=== PATIENT | female | born 1970 | race Caucasian/White ===

== ENCOUNTER 2017-11-15 05:41 | Observation (INO) | payer BC ==
[2017-11-10 14:45] VITALS: BMI 42.0
--- NOTE | 2017-11-10 15:19 | PAT Medication Instructions ---
Service Date Nov 10, 2017. Current Home Medication List Cholecalciferol (Vitamin D3), 1 TAB PO QAM Cyanocobalamin (Vitamin B-12), Unknown Dose PO QAM Magnesium Oxide (Magnesium), 1 CAP PO QAM Naproxen (Aleve), 220 MG PO UD [place]-3 Fatty Acids ([place] 3), 1 CAP PO QAM Venlafaxine Hcl (Effexor), 75 MG PO QAM Medication Instructions For Your Scheduled Surgery - Hold the following medications starting tomorrow: [place]-3 Fatty Acids ([place] 3), 1 CAP PO QAM - Hold the following medications per your surgeon's instructions: Naproxen (Aleve), 220 MG PO UD - Hold the following medications the morning of surgery: Cholecalciferol (Vitamin D3), 1 TAB PO QAM Cyanocobalamin (Vitamin B-12), Unknown Dose PO QAM Magnesium Oxide (Magnesium), 1 CAP PO QAM - Take the following medications the morning of surgery with a sip of water: Venlafaxine Hcl (Effexor), 75 MG PO QAM If you have any questions please call us at [phone] or [phone] or [phone]
[2017-11-10 16:30] LABS: BASO % 0.8 %; BASO ABS # 0.06 K/uL (0-0.2); EOS % 2.8 %; EOS ABS # 0.22 K/uL (0-0.5); HEMOGLOBIN 13.8 g/dL (12.0-16.0); IG# 0.01 K/uL (0.00-0.02); LYMPH % 37.3 %; LYMPH ABS # 2.92 K/uL (1.2-3.4); MEAN CELL VOLUME 91.5 fL (80-100); MEAN CORPUSCULAR HEMOGLOBIN 30.8 pg (25-34); MEAN CORPUSCULAR HGB CONC 33.7 g/dl (32-36); MEAN PLATELET VOLUME 10.4 fL (7.4-10.4); MONO % 6.3 %; MONO ABS # 0.49 K/uL (0.11-0.59); NEUT % 52.7 %; NEUT ABS # 4.12 K/uL (1.4-6.5); PLATELET COUNT 331 K/uL (130-400); RED CELL DISTRIBUTION WIDTH CV 13.3 % (11.5-14.5); RED CELL DISTRIBUTION WIDTH SD 44.4 fL (36.4-46.3); WHITE BLOOD COUNT 7.82 K/uL (4.8-10.8)
[2017-11-10 16:35] LABS: CALCIUM 9.4 mg/dl (8.5-10.1); CREATININE 0.87 mg/dl (0.60-1.20); POTASSIUM 4.1 mmol/L (3.5-5.1)
[2017-11-10 16:39] LABS: PTT PATIENT 27.5 SECONDS (21.0-31.0)
[2017-11-15] VITALS (8 sets, daily range): BP systolic 127–155; BP diastolic 76–92; PULSE 68–88; TEMP 36.5–36.9; O2SAT 93–97; Ht 154.9 cm; Wt 100.4 kg
[~2017-11-15] VITALS: Ht 154.9 cm; Wt 100.4 kg
[~2017-11-15 05:41] MED LIST: CHOL1000 PO; CYAN250T PO; EFF75 PO; MAGN1CAP4 PO; NAPR1TAB9 PO; OMEG12006 PO
[2017-11-15] MEDS ORDERED: CEFAZOLIN 2000MG IV PUSH 15 ML IV SCH (06:00)
[2017-11-15] MEDS ORDERED: LACTATED RINGER'S 1000ML 1,000 ML IV SCH (06:00)
[2017-11-15] MEDS ORDERED: LIDOCAINE/EPINEPHRINE 1% 20 ML VIAL ONE (06:48)
[2017-11-15] MEDS ORDERED: BUPIVACAINE 0.25% 30 ML VIAL ONE (06:48)
[2017-11-15] MEDS ORDERED: ACETAMINOPHEN 1000 MG/100 ML IV IV ONE (06:54)
[2017-11-15] MEDS ORDERED: FENTANYL CITRATE INJ 50 MCG/1 ML 2 ML VIAL IV PRN (07:00)
[2017-11-15] MEDS ORDERED: HYDROmorphone INJ 1 MG/ML SYR IV PRN (07:00)
[2017-11-15] MEDS ORDERED: ONDANSETRON INJ 2 MG/ML 2 ML VIAL IV PRN ×2 (07:00→11:45)
[2017-11-15] MEDS ORDERED: PROMETHAZINE HCL INJ 12.5 MG in SODIUM CHLORIDE 0.9% 50ML 50 ML IV PRN ×2 (07:00→11:45)
[2017-11-15] MEDS ORDERED: ATROPINE SULFATE 0.1 MG/ML 5ML SYR IV PRN (07:00)
[2017-11-15] MEDS ORDERED: EpHEDrine SULFATE INJ 50 MG/ML AMP IV PRN (07:00)
[2017-11-15] MEDS ORDERED: LIDOCAINE 2% 20 MG/ML 5ML SYR IV ONE (07:03)
[2017-11-15] MEDS ORDERED: PROPOFOL IV EMULSION 10 MG/ML 20 ML VIAL IV ONE (07:03)
[2017-11-15] MEDS ORDERED: ROCURONIUM BROMIDE 10 MG/ML 5 ML VIAL IV ONE (07:03)
[2017-11-15] MEDS ORDERED: FENTANYL CITRATE INJ 50 MCG/1 ML 2 ML VIAL ONE ×3 (07:04→10:34)
[2017-11-15] MEDS ORDERED: MIDAZOLAM HCL 1 MG/ML 2ML VIAL ONE (07:04)
--- NOTE | 2017-11-15 07:09 | History & Physical Bridge Note ---
H&P Re-Evaluation Bridge Note: I have examined the patient, reviewed the History & Physical and in the interval since the performance of the History & Physical I have noted the following changes of clinical significance: No changes noted
[2017-11-15] MEDS ORDERED: SUCCINYLCHOLINE CHLORIDE 20 MG/ML 10 ML VIAL IV ONE (08:02)
[2017-11-15] MEDS ORDERED: DEXAMETHASONE SOD INJ 4 MG/ML VIAL ONE (08:02)
[2017-11-15] MEDS ORDERED: ONDANSETRON INJ 2 MG/ML 2 ML VIAL ONE (08:02)
[2017-11-15] MEDS ORDERED: EpHEDrine SULFATE 50MG/5ML SYR ONE (08:03)
--- NOTE | 2017-11-15 10:38 | [facility] Post Operative Brief Note ---
Immediate Operative Summary Operative Date Nov 15, 2017. Pre-Operative Diagnosis Breast Hypertrophy Post-Operative Diagnosis Breast Hypertrophy Procedure(s) Performed Bilateral Breast Reduction Surgeon Dr. Carmencita Romo Hat Body Sorter Surgeon(s) Mehnaz Barry PA-C Estimated Blood Loss 25ML Findings Consistent with Post-Op Diagnosis Specimens Fresh Specimens: A.) Left Breast Tissue - 790 grams B.) Right Breast Tissue - 832 grams Drains DARRYL x2 Anesthesia Type General Complication(s) none
[2017-11-15] MEDS ORDERED: ACETAMINOPHEN 325 MG TAB PO PRN (11:45)
[2017-11-15] MEDS ORDERED: OXYCODONE/ACETAMINOPHEN 5-325 TAB PO PRN (11:45)
[2017-11-15] MEDS ORDERED: MoRPHine SULFATE 4 MG/ML 1 ML CARP\\VIAL IV PRN ×2 (11:45)
[2017-11-15] MEDS ORDERED: OXAZEPAM 10MG CAP PO PRN (11:45)
[2017-11-15] MEDS ORDERED: MoRPHine SULFATE 2 MG/ML CARP IV PRN (11:45)
[2017-11-15] MEDS ORDERED: DiphenhydrAMINE HCL 50 MG/ML VIAL IV PRN (11:45)
--- NOTE | 2017-11-15 12:11 | Anesthesiology Progress Note ---
Anesthesia Post Op Note Date & Time Nov 15, 2017 at 12:10 Vital Signs Pain Intensity: 0 Vital Signs Past 12 Hours Date Time Temp Pulse Resp B/P (MAP) Pulse Ox O2 Delivery O2 Flow Rate FiO2 11/15/17 12:01 76 16 158/72 98 11/15/17 12:01 74 16 11/15/17 11:56 78 13 11/15/17 11:56 78 13 145/93 97 11/15/17 11:51 78 13 160/85 97 11/15/17 11:51 80 13 11/15/17 11:50 82 18 11/15/17 11:50 82 18 97 11/15/17 11:46 157/85 11/15/17 11:45 76 14 11/15/17 11:45 75 14 95 11/15/17 11:43 151/89 11/15/17 11:43 36.7 11/15/17 11:40 74 16 11/15/17 11:40 74 16 97 11/15/17 11:39 74 15 97 11/15/17 11:39 74 15 11/15/17 11:36 144/84 11/15/17 11:34 75 16 99 11/15/17 11:34 76 16 11/15/17 11:31 152/109 11/15/17 11:29 76 30 99 11/15/17 11:29 77 30 11/15/17 11:26 160/96 11/15/17 11:24 86 18 11/15/17 11:24 83 18 99 11/15/17 11:21 133/83 11/15/17 11:19 36.6 85 18 155/86 98 Oxymask 10 11/15/17 11:19 155/86 11/15/17 06:00 36.8 70 18 150/76 (100) 97 Room Air Notes Mental Status: alert / awake / arousable, participated in evaluation Pt Amnestic to Procedure: Yes Nausea / Vomiting: adequately controlled Pain: adequately controlled Airway Patency, RR, SpO2: stable & adequate BP & HR: stable & adequate Hydration State: stable & adequate Anesthetic Complications: no major complications apparent
[2017-11-15] MEDS: LACTATED RINGER'S 1000ML 1,000 ML IV SCH (13:07)
[2017-11-15] MEDS: OXYCODONE/ACETAMINOPHEN 5-325 TAB PO PRN ×2 (13:28→16:09)
[2017-11-15] MEDS ORDERED: IV FLUIDS COMPLETED PRN (14:00)
[2017-11-15] MEDS ORDERED: EFFSR/75 PO (14:09)
[2017-11-15] MEDS ORDERED: NEOSTIGMINE METHYLSULFATE 5 MG/5 ML SYR ONE (14:15)
[2017-11-15] MEDS ORDERED: GLYCOPYRROLATE INJ 0.2 MG/ML VIAL ONE (14:15)
[2017-11-15] MEDS: CEFAZOLIN IV 2,000 MG in SYRINGE 0 ML IV SCH ×2 (14:37→22:35)
--- NOTE | 2017-11-15 20:10 | OPERATIVE REPORT ---
DATE OF OPERATION: 11/15/2017 PREOPERATIVE DIAGNOSIS: Bilateral symptomatic macromastia. POSTOPERATIVE DIAGNOSIS: Same. PROCEDURE: Bilateral reduction mammoplasty. SURGEON: Carmencita Romo MD.. SPORTS TEAM MARKETING INTERN: Mehnaz Barry PA-C. ANESTHESIA: General. COMPLICATIONS: None. INDICATION FOR THE PROCEDURE: The patient is a 47-year-old female who presented to my office with complaints of back, neck and shoulder pain related to macromastia. After discussion, she decided to undergo breast reduction surgery. BRIEF DESCRIPTION OF THE PROCEDURE: The risks, benefits and alternatives of the procedure were explained to the patient who agreed and signed consent. She was identified and marked in the preoperative holding area. She was brought to the operating room where she was positioned supine and placed under general anesthesia without incident. Surgical site was prepped and draped sterilely. A time-out procedure was performed. I began with the left side. Markings were reassessed and an 8 cm pedicle was marked. 1% lidocaine with epinephrine was used to anesthetize the planned incisions. A 38 mm cookie cutter was used to circumscribe the nipple-areolar complex. The previously marked 8 cm pedicle was incised using a 15 blade scalpel and deepithelized. I began with the medial dissection of the pedicle using electrocautery. Cautery was used to incise through dermis and breast parenchyma down into the chest wall, taking care not to undermine the pedicle during dissection. A similar procedure was undertaken on the lateral aspect of the pedicle again taking care not to undermine. Lastly, the pedicle was dissected out superiorly using electrocautery and this was carried down to the chest wall as well. I then began excision of the medial breast tissue followed by lateral aspect of the breast tissue and surrounding keyhole incision. A 15 blade scalpel was used to make the inframammary fold incision and electrocautery was used to deepen the incision through dermis and breast parenchyma. The dissection was then carried superiorly to the level of the superior incision. Superior incision was then incised using 15 blade scalpel and again dissected using electrocautery. This was undertaken laterally and then around the keyhole portion of the incision. Care was taken to leave some fat on the lateral pectoralis fascia in order to protect the T4 intercostal nerve. Hemostasis was achieved with electrocautery. Specimen was removed in its entirety and passed off for weighing. Additional resection underneath the flap was taken. This was taken until a total of 790 grams were removed from the left breast. The wound was irrigated with saline and hemostasis was achieved with electrocautery. 0.25% Marcaine plain was used to anesthetize the incisions as well as the pectoralis fascia. A 15 Azeri Noe drain was brought out through a separate stab incision. The nipple-areolar complex was brought into the keyhole using 2-0 Vicryl deep dermal suture. The wound was closed first in a lateral to mid breast direction using 2-0 Vicryl deep dermals and then medial to mid breast using 2-0 Vicryl deep dermals. Vertical limb was also approximated using 2-0 Vicryl deep dermals. The nipple-areolar complex was inset using 2-0 Vicryl deep dermals. Next, the superficial dermal layer was closed using 2-0 PDO running Quill suture along the inframammary fold and 3-0 PDS interrupted dermal sutures for the vertical limb and nipple-areolar complex. Lastly 3-0 Monocryl running subcuticular suture was placed. A similar procedure was undertaken on the right side with maximal excision weight of 832 grams. The breasts were very symmetric following this portion of the procedure. Following closure, Dermabond Prineo was applied along the inframammary fold and vertical limb incisions and Dermabond was placed around the nipple-areolar complex. Dry dressings and a surgical bra were placed. The patient was awakened and transferred to recovery room in satisfactory condition. Mehnaz Barry PA-C was present and scrubbed throughout the entire procedure and was instrumental in providing retraction during dissection of the pedicle and assisting in simultaneous wound closure. I attest to the content of the Intraoperative Record and any orders documented therein. Any exception s are noted below.
[2017-11-16] MEDS: LACTATED RINGER'S 1000ML 1,000 ML IV SCH (01:57)
[2017-11-16 03:55] VITALS: BP 128/83; PULSE 69; TEMP 36.8; O2SAT 98
[2017-11-16 07:18] VITALS: BP 132/84; PULSE 60; TEMP 37.2; O2SAT 99
--- NOTE | 2017-11-16 08:05 | Surgery Progress Note ---
Surgery Progress Note Date of Service Nov 16, 2017. Subjective Post OP Day: 1 + feeling well, + ambulating, + pain controlled, No complaints Objective Vital Signs: Date Time Temp Pulse Resp B/P (MAP) Pulse Ox O2 Delivery O2 Flow Rate FiO2 11/16/17 07:18 37.2 60 16 132/84 (100) 99 Room Air 11/16/17 03:55 36.8 69 14 128/83 (98) 98 Room Air 11/15/17 23:40 Room Air 11/15/17 22:29 36.8 73 18 134/83 (100) 97 Room Air 11/15/17 19:27 36.9 68 19 127/87 (100) 96 Room Air 11/15/17 16:15 97 Room Air 11/15/17 15:19 36.8 88 19 149/92 (111) 97 Nasal Cannula 2.0 11/15/17 13:20 86 16 153/87 (109) 97 2.0 11/15/17 12:50 36.5 83 16 129/79 (96) 93 2.0 11/15/17 12:20 94 Nasal Cannula 2.0 11/15/17 12:20 94 Nasal Cannula 2.0 11/15/17 12:20 36.5 83 16 155/88 (110) 94 Nasal Cannula 2.0 11/15/17 12:10 36.7 11/15/17 12:07 75 14 97 11/15/17 12:07 74 14 11/15/17 12:02 78 15 98 11/15/17 12:02 75 15 11/15/17 12:01 76 16 158/72 98 11/15/17 12:01 74 16 11/15/17 11:56 78 13 11/15/17 11:56 78 13 145/93 97 11/15/17 11:51 78 13 160/85 97 18 11:51 80 13 18 11:50 82 18 11/15/17 11:50 82 18 97 11/15/17 11:46 157/85 18 11:45 76 14 18 11:45 75 14 95 11/15/17 11:43 151/89 11/15/17 11:43 36.7 11/15/17 11:40 74 16 2/19/18 11:40 74 16 97 11/15/17 11:39 74 15 97 11/15/17 11:39 74 15 11/15/17 11:36 144/84 11/15/17 11:34 75 16 99 11/15/17 11:34 76 16 11/15/17 11:31 152/109 11/15/17 11:29 76 30 99 11/15/17 11:29 77 30 11/15/17 11:26 160/96 11/15/17 11:24 86 18 11/15/17 11:24 83 18 99 11/15/17 11:21 133/83 11/15/17 11:19 36.6 85 18 155/86 98 Oxymask 10 11/15/17 11:19 155/86 Physical Exam: Noe drainage (serous and bloody) General Appearance: WD/WN, no apparent distress Incision(s): clean, dry, intact, no erythema, findings (nipples warm and with sensation bilat) Assessment & Plan s/p bilateral breast reduction POD#1 drains removed d/c instructions reviewed. D/c home today and f/u in office tomorrow
--- NOTE | 2017-11-16 08:07 | Discharge Instructions ---
Discharge Instructions Date of Service Nov 16, 2017. Admission Reason for Admission: Breast Hypertrophy Discharge Discharge Diagnosis / Problem: breast hypertrophy Discharge Goals Goal(s): Decrease discomfort, Improve function Activity Recommendations Activity Limitations: as noted below ACTIVITY RECOMMENDATIONS: __Normal activities _x_No bending, lifting or straining __No driving __Driving allowed when you are off pain medications _x_Walking permitted __You should have help at home for ___ days DRESSINGS: __No dressings required _x_Keep dressings dry/in place until first office visit __Remove dressings ___ and leave dressings off __Apply ice ___ days __Remove dressings and reapply garment __Apply antibiotic ointment (Bacitracin, Neosporin, etc) to wounds 3-4 times/ day for 10 days BATHING: _x_Keep dressings dry _x_Sponge bathing permitted __Showering permitted _x_No swimming, hot tubs or soaking in a tub MEDICATIONS: Resume previous medications unless instructed otherwise by your surgeon. _x_Do not use aspirin, Motrin, Advil or Ibuprofen as these may promote bleeding. Please use Tylenol. _x_Prescription(s) provided: pain medication provided at your last office visit OTHER INSTRUCTIONS: __Record drain output 2-3 times per day SPECIAL CARE INSTRUCTIONS: * It is normal to have a mild fever after surgery. If your temperature is higher than 101.5 degrees F, please call the office at [phone]. * Constipation is a typical side effect of pain medication. An over-the- counter stool softener will help relieve this. * Leaking around surgical drains may occur and should not cause concern. Sometimes these drains become clogged. If this happens, remove the bulb and milk the clot out of the tube, then replace the bulb. * Drainage from wounds after liposuction is normal and should be expected. Garments will become soiled. You should protect furniture and bedding. This drainage should mostly subside within 2-3 days. Leave garments in place unless instructed to remove them. * If you have unusual drainage from a wound or are concerned you have an infection or have any questions or concerns, please call the office at [phone]. FOLLOW UP VISIT: If not already scheduled, please call the office, , when you return home after surgery to schedule an appointment to be seen in _1__ days. . Current Hospital Diet Patient's current hospital diet: Regular Diet Discharge Diet Recommended Diet: Regular Diet Procedures Procedures Performed: Bilateral Breast Reduction Pending Studies Studies pending at discharge: yes List of pending studies: pathology Medical Emergencies . Who to Call and When: Medical Emergencies: If at any time you feel your situation is an emergency, please call 911 immediately. . Non-Emergent Contact Non-Emergency issues call your: Primary Care Provider, Surgeon . "Provider Documentation" section prepared by Mehnaz Barry. . VTE Core Measure Inpt VTE Proph given/why not?: SCD's [place] Drug Monitoring Program Search Results: no issues identified
[2017-11-16] MEDS ORDERED: MAGNESIUM OXIDE 400 MG TAB PO SCH (09:00)
[2017-11-16] MEDS ORDERED: VENLAFAXINE HCL XR 75 MG CAPXR PO SCH (09:00)
[2017-11-16] MEDS ORDERED: MULTIVITAMIN TAB PO SCH (09:00)
[2017-11-16 10:58] VITALS: BP 132/84; PULSE 60; TEMP 37.2; O2SAT 99
--- NOTE | 2017-11-16 11:45 | Progress Note ---
Progress Note Date of Service Nov 16, 2017. Progress Note addendum to operative report: 42 mm cookie cutter used, not 38
--- NOTE | 2017-11-16 13:33 | Discharge Summary ---
Discharge Summary Date of Service Nov 16, 2017. Admission Date/Reason Nov 15, 2017 at 06:30 Breast Hypertrophy. Discharge Date/Disposition Nov 16, 2017 Home Diagnosis Principal Diagnosis: breast hypertrophy Procedure(s) Performed bilateral breast reduction Medication Reconciliation Continued Medications: Cholecalciferol (Vitamin D3) 1,000 Unit Tab 1 TAB PO QAM for 90 Days, #90 TAB 3 Refills Cyanocobalamin (Vitamin B-12) Unknown Strength Tab Unknown Dose PO QAM, TAB Magnesium Oxide (Magnesium) 500 Mg Cap 1 CAP PO QAM Venlafaxine HCl (Venlafaxine HCl ER) 75 Mg Capcr 75 MG PO DAILY Discontinued Medications: Naproxen (Aleve) 220 Mg Tab 220 MG PO UD, TAB PATIENT RECEIVED PRE OP INSTRUCTIONS FOR THIS MED FROM DR SAHU Lambert-3 Fatty Acids ([place] 3) 1 Cap Cap 1 CAP PO QAM "ARIK RED" Admission Physical Exam As per Admitting History & Physical. Hospital Course Patient presented to same day surgery with history of symptomatic macromastia. She was taken to the OR and underwent bilateral breast reduction. On POD#1 her drains were removed. She was feeling well, ambulating and tolerating a regular diet. On exam her incisions are clean, dry, intact and nipples pink and with sensation bilaterally. She was discharged home with instructions to follow-up in the office in one day. Discharge Instructions Please refer to the electronic Patient Visit Report (Discharge Instructions) for additional information.
== END 2017-11-16 11:30 | disposition home or self-care (01) ==
LOC: C.ACU 05:41 → C.MSW 06:30 → ENRESERV 11:56
PROVIDERS: ADMIT Plastic Surgery; ATTEND Plastic Surgery
DX: N62 Hypertrophy of breast (principal); Z98.51 Tubal ligation status; F32.9 Major depressive disorder, single episode, unspecified; E66.9 Obesity, unspecified; Z68.41 Body mass index [BMI] 40.0-44.9, adult; Z87.891 Personal history of nicotine dependence; Z79.891 Long term (current) use of opiate analgesic; Z90.89 Acquired absence of other organs; Z90.710 Acquired absence of both cervix and uterus; Z82.49 Family history of ischemic heart disease and other diseases of the circulatory system

== ENCOUNTER → 2017-12-08 | Day surgery (SDC) | payer BC ==
[2017-11-18 14:18] VITALS: Ht 154.9 cm; Wt 100.5 kg
[~2017-12-08] VITALS: Ht 154.9 cm; Wt 100.5 kg
[~2017-12-08] MED LIST changes: +ATROPINE SULFATE 0.1 MG/ML 5ML SYR IV PRN; +BUPIVACAINE 0.5 % 5 MG/1 ML MPF 30ML VIAL ONE; +CEFAZOLIN 2000MG IV PUSH 15 ML IV SCH; +DEXAMETHASONE SOD INJ 4 MG/ML VIAL ONE; -EFF75 PO; +EFFSR/75 PO; +EpHEDrine SULFATE INJ 50 MG/ML AMP IV PRN; +FENTANYL CITRATE INJ 50 MCG/1 ML 2 ML VIAL IV PRN; +FENTANYL CITRATE INJ 50 MCG/1 ML 2 ML VIAL ONE; +FLUMAZENIL 0.1 MG/1 ML 10 ML VIAL IV PRN; +HYDROmorphone INJ 2 MG/ML SYR/VIAL IV PRN; +LABETALOL HCL IV 5 MG/ML 20ML IV PRN; +LACTATED RINGER'S 1000ML 1,000 ML IV SCH; +LIDOCAINE HCL 2% 2 ML VIAL (20MG/ML) ONE; +LIDOCAINE HCL 2% LOCAL 20 ML VIAL ONE; +MEPERIDINE HCL 25 MG/ML CARP IV PRN; +MIDAZOLAM HCL 1 MG/ML 2ML VIAL ONE; +NALOXONE HCL 0.4 MG/1 ML VIAL/CARP IV PRN; -NAPR1TAB9 PO; -OMEG12006 PO; +ONDANSETRON INJ 2 MG/ML 2 ML VIAL IV PRN; +ONDANSETRON INJ 2 MG/ML 2 ML VIAL ONE; +PHENYLEPHRINE 100MCG/ML 5ML SYR IV PRN; +PROPOFOL IV EMULSION 10 MG/ML 20 ML VIAL IV ONE; +SODIUM CHLORIDE 0.9% 1000ML 1,000 ML IV SCH
--- NOTE | 2017-12-08 07:29 | [facility] Post Operative Brief Note ---
Immediate Operative Summary Operative Date Dec 08, 2017. Pre-Operative Diagnosis Right Carpal Tunnel Syndrome Post-Operative Diagnosis Same Procedure(s) Performed Right Carpal Tunnel Release Surgeon Dr. Vaughn Litigation Associate Surgeon(s) Hong Bustos PA-C Estimated Blood Loss Minimal Findings Consistent with Post-Op Diagnosis Specimens None Drains None Anesthesia Type MAC Complication(s) none Disposition Accompanied Pt To Recovery: no Disposition: Recovery Room / PACU
--- NOTE | 2017-12-08 07:30 | Discharge Instructions-SurgCtr ---
Discharge Instructions Date of Service Dec 08, 2017. Visit Reason for Visit: Right Carpal Tunnel Syndrome Discharge Discharge Diagnosis / Problem: RIGHT CARPAL TUNNEL SYNDROME Discharge Goals Goal(s): Decrease discomfort, Improve function, Therapeutic intervention Activity Recommendations Activity Limitations: per Instructions/Follow-up section Anesthesia . Post Anesthesia Instructions: If you have had General Anesthesia or IV Sedation: * Do not drive today. * Resume driving when surgeon permits. * Do not make important decisions or sign legal documents today. * Call surgeon for: 1. Temperature elevations greater than 101 degrees F. 2. Uncontrollable pain. 3. Excessive bleeding. 4. Persistent nausea and vomiting. 5. Medication intolerance (nausea, vomiting or rash). * For nausea and vomiting use only clear liquids such as: tea, soda, bouillon until nausea subsides, then gradually increase diet as tolerated. * If you have any concerns or questions, call your surgeon's office. If physician is unavailable and it is an emergency, call 911 or go to the nearest emergency room. . Instructions / Follow-Up Instructions / Follow-Up MEDICATIONS: * Resume previous medications unless instructed otherwise by your surgeon. * Always take pain medication on a full stomach or with food to avoid upset stomach. * Do not drink alcohol or drive while taking narcotics. * Ibuprofen or Tylenol may be taken if narcotic not needed. SPECIAL CARE INSTRUCTIONS: __ None __ Keep extremity elevated and iced x 48 hours; apply ice 20-30 minutes 8-10 times/day. May remove at night. __ Sling __24 hrs/day __ Remove at night __ Shoulder Immobilizer __ 24 hrs/day __ Remove at night _X_ Dressing _X_ Maintain until seen in office, may shower with plastic over site __ Remove dressings in 24-48 hours and then may shower __ Cover incisions with band-aids after showering __ Do not remove steri-strips Call physician if chills or temperature rises above 102 degrees or pain unrelieved by prescribed pain medications at . . FOLLOW UP IN 2 WEEKS Diet Recommendations Home Diet: resume previous diet Procedures Procedures Performed: Right Carpal Tunnel Release Pending Studies Studies pending at discharge: no Medical Emergencies . Who to Call and When: Medical Emergencies: If at any time you feel your situation is an emergency, please call 911 immediately. . Non-Emergent Contact Non-Emergency issues call your: Surgeon . . "Provider Documentation" section prepared by Rgeinald Bustos. .
--- NOTE | 2017-12-08 07:47 | Anesthesia Progress Nt - [facility] ---
Anesthesia Post Op Note Date & Time Dec 08, 2017 at 07:47 Vital Signs Pain Intensity: 0 Vital Signs Past 12 Hours Date Time Temp Pulse Resp B/P (MAP) Pulse Ox O2 Delivery O2 Flow Rate FiO2 12/08/17 07:31 36.6 62 16 123/86 (98) 100 Room Air 12/08/17 06:21 37.1 65 18 146/78 (100) 95 Room Air Notes Mental Status: alert / awake / arousable, participated in evaluation Pt Amnestic to Procedure: Yes Nausea / Vomiting: adequately controlled Pain: adequately controlled Airway Patency, RR, SpO2: stable & adequate BP & HR: stable & adequate Hydration State: stable & adequate Anesthetic Complications: no major complications apparent
[2017-12-08 07:48] VITALS: BP 129/89; PULSE 64; O2SAT 99
--- NOTE | 2017-12-08 07:51 | OPERATIVE REPORT ---
DATE OF OPERATION: 12/08/2017 SURGEON: Perry Vaughn MD. ROLLING MILL OPERATOR HELPER: ELO Jamison. PREOPERATIVE DIAGNOSIS: Right carpal tunnel syndrome. POSTOPERATIVE DIAGNOSIS: Same. PROCEDURE PERFORMED: Right carpal tunnel release. COMPLICATIONS: None. ESTIMATED BLOOD LOSS: Minimal. TOURNIQUET TIME: 5 minutes at 250 mmHg. ANESTHESIA: Local with IV sedation. OPERATIVE INDICATIONS: The patient is a 47-year-old female who has had a fairly long history of bilateral hand pain, discomfort and numbness right side a bit worse than the left. Symptoms gradually progressed. She failed conservative care. She had nerve studies that revealed moderate to severe right carpal tunnel syndrome. She would like to proceed with carpal tunnel release. OPERATIVE PROCEDURE: The patient taken to the operating room, identified and placed on the operating table in supine position. All contact areas were appropriately padded. IV antibiotics provided by anesthesia team. A right forearm tourniquet was placed. Some IV sedation was provided. 9 mL of a 50:50 combination of 0.5% Marcaine and 2% lidocaine were then injected in and around the proposed incision site. The right hand was then prepped and draped in usual sterile fashion. The right arm was elevated, exsanguinated with an Esmarch and tourniquet was placed at 250 mmHg. A 2.5-3 cm incision was made in the palm just ulnar to the palmaris longus tendon. Blunt dissection was carried through subcutaneous tissue down below the palmar fascia. The palmar fascia was incised longitudinally in line with the skin incision. The underlying transverse carpal ligament was identified. It was cleaned of all soft tissues. It was transected distally with use of a [place] blade knife and then bluntly spread. Attention was then drawn proximally. Blunt dissection carried out above and below the ligament proximally. The ligament was then transected for a minimum distance of 3 cm proximal to the wrist flexion crease. The ligament was bluntly spread and found to be completely released. The wound was irrigated with copious amounts of normal saline. The tourniquet was let down for a final tourniquet time of 5 minutes. Hemostasis was assured using electrocautery. The wound was once again irrigated. The skin was then closed with 5-0 nylon suture in a horizontal mattress fashion. The hand was then cleaned and dried and a sterile dressing of Xeroform, 4 x 4, sterile cast padding and Kapil bandage were applied. The patient then transferred to the recovery room in stable condition. The patient tolerated the procedure well with no complication. All needle and sponge counts were correct at the end of the operation. I attest to the content of the Intraoperative Record and any orders documented therein. Any exception s are noted below.
== END | disposition home or self-care (01) ==
LOC: X.SURG 06:13
PROVIDERS: ATTEND Orthopaedic Surgery Sports Medicine
DX: G56.01 Carpal tunnel syndrome, right upper limb (principal)